=== PATIENT | female | born 1965 | race Caucasian/White ===

== ENCOUNTER 2016-11-07 07:29 | Day surgery (SDC) | payer OTHER ==
[2016-11-07] MEDS ORDERED: SCOPOLAMINE HYDROBROMIDE 1.5 MG PATCH TD ONE (08:30)
[2016-11-07] MEDS ORDERED: ceFAZolin 2 GM/DEXTROSE 100 ML IV ONE (08:30)
[2016-11-07] MEDS ORDERED: ACETAMINOPHEN 500 MG TAB PO ONE (08:30)
[2016-11-07] MEDS ORDERED: PREGABALIN 150 MG CAP PO ONE (08:30)
[2016-11-07] MEDS ORDERED: MIDAZOLAM 2 MG/2 ML VIAL ONE (09:13)
[2016-11-07] MEDS ORDERED: PROPOFOL 200 MG/20 ML VIAL ONE (09:15)
[2016-11-07] MEDS ORDERED: fentaNYL 250 MCG/5 ML INJ ONE (09:15)
[2016-11-07] MEDS ORDERED: ROCURONIUM 50 MG/5 ML VIAL ONE ×2 (09:15→11:12)
[2016-11-07] MEDS ORDERED: LIDOCAINE 2% 5 ML SDV ONE (09:15)
[2016-11-07] MEDS ORDERED: DEXAMETHASONE 4 MG/ML VIAL ONE (09:17)
[2016-11-07] MEDS ORDERED: REMIFENTANIL HCL 1 MG VIAL ONE ×2 (09:18→12:47)
[2016-11-07] MEDS ORDERED: LR 1,000 ML IV ONE (09:23)
[2016-11-07] MEDS ORDERED: BUPIVACAINE/EPI 0.25% 30 ML SDV ONE (09:23)
[2016-11-07] MEDS ORDERED: LIDOCAINE 1% 5 ML SDV ID PRN (09:23)
[2016-11-07] MEDS ORDERED: PROPOFOL/EMULSION 500 MG/50 ML BOTTLE IV ONE ×3 (09:37→12:48)
[2016-11-07] MEDS ORDERED: HYDROmorphONE/DILAUDID 2 MG/ML INJ ONE (11:03)
[2016-11-07] MEDS ORDERED: GLYCOPYRROLATE 0.2 MG/1 ML VIAL ONE (11:11)
[2016-11-07] MEDS ORDERED: ceFAZolin 1 GM VIAL ONE ×2 (13:43)
[2016-11-07] MEDS ORDERED: HYDROmorphONE/DILAUDID 1 MG/ML SYR ONE (14:34)
== END 2016-11-07 18:40 | disposition home health service (06) ==
LOC: FSGY 07:29
PROVIDERS: ATTEND Orthopaedic Surgery Sports Medicine
PROC: 0SQ94ZZ Repair Right Hip Joint, Percutaneous Endoscopic Approach (ICD-10-PCS; principal; 2016-11-07 09:30)
DX: M25.851 Other specified joint disorders, right hip (principal); M24.151 Other articular cartilage disorders, right hip; M94.251 Chondromalacia, right hip; M51.37 Other intervertebral disc degeneration, lumbosacral region
CPT/HCPCS: 29914; 29916; 76001; C1769; C1713; J0171; J0690; J1100; J1170; J2250; J2704; J3010